=== PATIENT | female | born 1940 | race Caucasian/White ===

== ENCOUNTER 2020-11-07 08:06 | Day surgery (SDC) | payer MEDICARE ==
[2020-11-06 12:40] LABS: BASOPHILS % (AUTO) 0.4 % (0-1); EOSINOPHILS # (AUTO) 0.2 X10'3 (0-0.9); EOSINOPHILS % (AUTO) 2.7 % (0-6); HEMATOCRIT 40.3 % (35.0-45.0); HEMOGLOBIN 12.9 g/dl (12.0-16.0); LYMPHOCYTES # (AUTO) 1.3 X10'3 (1.1-4.8); LYMPHOCYTES % (AUTO) 20.3 % (21-51); MEAN CORPUSCULAR HEMOGLOBIN 26.2 PG (27.0-31.0); MEAN CORPUSCULAR VOLUME 81.8 FL (78-98); MEAN PLATELET VOLUME 8.3 FL (7.4-10.4); MONOCYTES # (AUTO) 0.4 X10'3 (0-0.9); MONOCYTES % (AUTO) 6.8 % (2-12); NEUTROPHILS # (AUTO) 4.4 X10'3 (1.8-7.7); NEUTROPHILS % (AUTO) 69.8 % (42-75); PLATELET COUNT 190 X10'3 (140-440); RED BLOOD COUNT 4.93 X10'6 (4.20-5.60); RED CELL DISTRIBUTION WIDTH 17.5 % (11.5-14.5); WHITE BLOOD COUNT 6.2 X10'3 (4.5-11.0)
[2020-11-06 13:02] LABS: ALANINE AMINOTRANSFERASE 23 U/L (12-78); ALBUMIN 3.6 G/DL (3.4-5.0); ALKALINE PHOSPHATASE 61 IU/L (46-116); ANION GAP 10 (8-16); ASPARTATE AMINO TRANSFERASE 18 U/L (10-37); BILIRUBIN,TOTAL 0.5 MG/DL (0.1-1.0); BLOOD UREA NITROGEN 27 MG/DL (7-18); CALCIUM 8.8 MG/DL (8.5-10.1); CHLORIDE 110 MMOL/L (99-107); CREATININE 1.04 MG/DL (0.40-0.90); GLUCOSE 102 MG/DL (70-104); SODIUM 145 MMOL/L (135-145); TOTAL CARBON DIOXIDE 25.2 MMOL/L (24-32); TOTAL PROTEIN 7.2 G/DL (6.4-8.2); eGFR 51 ML/MIN
[2020-11-07] VITALS (17 sets, daily range): BP systolic 80–119; BP diastolic 43–86
[~2020-11-07] VITALS: Ht 160 cm; Wt 81.3 kg
[~2020-11-07 08:06] MED LIST: AMIO200T61 PO; CARV-50 PO; CEPH500C2 PO; LISI-790 PO
[2020-11-07] MEDS ORDERED: LORazepam 0.5 MG tablet PO ONE (08:40)
[2020-11-07] MEDS ORDERED: atropine 0.1mg/ml 10ml syringe IV ONE (08:40)
[2020-11-07] MEDS ORDERED: diphenhydrAMINE 25mg capsule PO ONE (08:40)
[2020-11-07] MEDS ORDERED: amiodarone 150mg/dext, iso-os 100 ML IV ONE (08:40)
[2020-11-07] MEDS ORDERED: MIDAZolam 1mg/ml 10ml vial IV ONE (08:40)
[2020-11-07] MEDS ORDERED: normal saline 1000ml 1,000 ML IV SCH (08:40)
[2020-11-07] MEDS ORDERED: morphine 10mg/ml inj. IV ONE (08:40)
[2020-11-07] MEDS ORDERED: FURO-150 PO (08:56)
[2020-11-07] MEDS ORDERED: APIX2.5T PO (08:57)
[2020-11-07] MEDS ORDERED: VITA-134 PO (08:58)
[2020-11-07] MEDS ORDERED: UBID100C16 PO (08:59)
== END 2020-11-07 13:15 | disposition home or self-care (01) ==
LOC: SSTAY O 08:06
PROVIDERS: ATTEND Internal Medicine Cardiovascular Disease
DX: I48.19 Other persistent atrial fibrillation (principal); I25.10 Atherosclerotic heart disease of native coronary artery without angina pectoris; I08.1 Rheumatic disorders of both mitral and tricuspid valves; J45.909 Unspecified asthma, uncomplicated; D64.9 Anemia, unspecified; I42.0 Dilated cardiomyopathy; I10 Essential (primary) hypertension; Z79.899 Other long term (current) drug therapy; Z79.01 Long term (current) use of anticoagulants
CPT/HCPCS: 36415; 80053; 85025; 85610; 92960; 93005; 94760; 94799; J0461; J2250; J2270; J7030